=== PATIENT | female | born 1985 | race Caucasian/White ===

== ENCOUNTER 2016-10-06 08:30 | Emergency (ER) | payer SELFPAY ==
[~2016-10-06 08:30] MED LIST: 'PARAFON FORTE500 M1 PO; AMOXICILLIN500 MG PO; ANTIVERT/2525 MG PO; AUGMENTIN 875875 MG PO; B12,B-12,B 12500 MC1 PO; BACTRIM DS 8001 TA1 PO; BACTRIM DS 8001 TAB PO; CLARITIN10 MG PO; CLEOCIN HCL300 MG PO; EFFEXOR37.5 MG PO; ELIMITE 5%60 GM T; FEROSUL325 MG PO; FLEXERIL10 MG PO; FLOMAX0.4 MG PO; HYDROCODONE BIT1 T11 PO; KLONOPIN1 MG PO; LAMICTAL25 MG PO; LIDEX0.05% T; MACROBID100 M1 PO; MOTRIN600 MG PO; MOTRIN800 MG PO; MULTIVITAMIN FO1 CAP PO; NAPROSYN500 MG PO; NKHM; PERCOCET 325 MG1 TA2 PO; PHARMASSURE FO0.4 MG PO; PHENERGAN25 M1 PO; Percocet 325 MG1 TAB PO; SYNTHROID0.125 MG PO; Synthroid,Levo25 MCG PO; TORADOL10 MG PO; TRAMADOL HCL50 MG PO; TRAMADOL50 MG PO; TRAZODO50 MG PO; XANAX0.5 MG PO; ZOFRAN ODT4 MG SL; [UNRECOGNIZED DRUG - OTHER]
[2016-10-06 08:57] LABS: BASO % 0.2 % (0.0-1.0); HEMATOCRIT 36.8 % (37.0-47.0); HEMOGLOBIN 11.8 g/dl (12.0-16.0); LYMPH # 2.1 10*3/uL (1.3-4.4); MEAN CELL VOLUME 86.6 fl (81.0-99.0); MEAN CORPUSCULAR HGB 27.8 pg (27.0-31.0); MEAN CORPUSCULAR HGB CONC 32.1 g/dl (33.0-37.0); MEAN PLATELET VOLUME 8.7 fl (9.6-12.3); MONO # 0.8 10*3/uL (0.1-1.0); MONO % 7.8 % (3.0-9.0); NEUT # 6.7 10*3/uL (2.3-7.9); NEUT % 69.6 % (47.0-73.0); PLATELET COUNT AUTOMATED 242 10*3/uL (130-400); RED BLOOD COUNT 4.25 10*6/uL (4.10-5.10); RED CELL DISTRI WIDTH 13.8 % (0-14.5); WHITE BLOOD COUNT 9.6 10*3/uL (4.8-10.8)
[2016-10-06 09:14] LABS: ALBUMIN 3.6 gm/dl (3.1-4.5); ALKALINE PHOSPHATASE 64 U/L (45-117); BILIRUBIN, TOTAL 0.6 mg/dl (0.2-1.0); BUN 11 mg/dl (7-24); CARBON DIOXIDE 26 mmol/L (21-32); CHLORIDE 107 mmol/L (98-107); EST GLOM FILT AFRICAN AMERICAN > 60 ml/min; GLUCOSE 89 mg/dL (65-99); MAGNESIUM 2.4 mg/dL (1.5-2.1); POTASSIUM 3.3 mmol/L (3.5-5.1); SGOT/AST 53 IU/L (3-35); SGPT/ALT 53 U/L (12-78); SODIUM 143 mmol/L (136-145); TOTAL PROTEIN 8.6 gm/dL (6.4-8.2)
[2016-10-06 09:39] LABS: BILIRUBIN 1+ (NEGATIVE); BLOOD NEGATIVE (NEGATIVE); CLARITY CLOUDY (CLEAR); COLOR YELLOW (YELLOW); GLUCOSE NEGATIVE (NEGATIVE); KETONE 1+ (NEGATIVE); LEUKO ESTERASE TRACE (NEGATIVE); NITRITE NEGATIVE (NEGATIVE); PH 7.5 (5.0-9.0); PROTEIN 1+ (NEGATIVE); UROBILINOGEN >= 8.0 E.U./dl (0.2-1.0)
[2016-10-06 09:44] LABS: URINE AMPHETAMINES < 1000 (1000ng/ml); URINE BARBITURATES < 200 (200ng/ml); URINE COCAINE > 300 (300ng/ml)
[2016-10-06 09:50] LABS: EPITHELIAL CELLS 16-20
[2016-10-06 09:51] LABS: BACTERIA 2+; MUCOUS 2+; RBC 0-2 rbc/hpf (0-2); URINE REFLEX COMMENT YES (NO)
[2016-10-06 09:54] VITALS: BP 115/68
== END 2016-10-06 11:01 | disposition short-term general hospital (02) ==
LOC: ED 08:30
PROVIDERS: Emergency Medicine
DX: I63.9 Cerebral infarction, unspecified (principal); F41.9 Anxiety disorder, unspecified

== ENCOUNTER 2018-02-19 11:17 | Inpatient (IN) | payer OTHER ==
[~2018-02-19] VITALS: Ht 167.6 cm; Wt 82.2 kg
[2018-02-19 12:35] VITALS: BP 92/51
[2018-02-19 13:30] VITALS: BP 92/51
[2018-02-19] MEDS ORDERED: QUETIAPINE FUM100 M2 PO (13:33)
[2018-02-19] MEDS ORDERED: TOPIRAMATE50 M1 PO (13:34)
[2018-02-19] MEDS ORDERED: ROPINIROLE HYDRO1 MG PO (13:35)
[2018-02-19] MEDS ORDERED: IRON 100-VITAM1 EACH PO (13:35)
[2018-02-19 14:28] LABS: BILIRUBIN NEGATIVE (NEGATIVE); BLOOD NEGATIVE (NEGATIVE); CLARITY CLEAR (CLEAR); COLOR YELLOW (YELLOW); GLUCOSE NEGATIVE (NEGATIVE); KETONE NEGATIVE (NEGATIVE); LEUKO ESTERASE 1+ (NEGATIVE); NITRITE NEGATIVE (NEGATIVE); SPECIFIC GRAVITY <= 1.005 (1.005-1.030)
[2018-02-19 14:36] LABS: BACTERIA 1+; EPITHELIAL CELLS TNTC; RBC 0-2 rbc/hpf (0-2)
[2018-02-19 14:39] LABS: URINE AMPHETAMINES < 1000 (1000ng/ml); URINE BARBITURATES < 200 (200ng/ml); URINE BENZODIAZEPINES < 200 (200ng/ml); URINE CANNABINOIDS (THC) < 50 (50ng/ml); URINE COCAINE > 300 (300ng/ml); URINE METHADONE < 300 (300ng/ml); URINE OPIATES < 300 (300ng/ml); URINE PHENCYCLIDINE < 25 (25ng/ml)
[2018-02-19 17:00] VITALS: BP 90/62
[2018-02-19 20:00] VITALS: BP 98/50
[2018-02-19 20:21] LABS: BASO % 0.3 % (0.0-1.0); EOS % 0.7 % (1.0-4.0); HEMATOCRIT 37.3 % (37.0-47.0); HEMOGLOBIN 11.9 g/dl (12.0-16.0); LYMPH # 2.6 10*3/uL (1.3-4.4); LYMPH % 45.6 % (27.0-41.0); MEAN CORPUSCULAR HGB 26.8 pg (27.0-31.0); MEAN CORPUSCULAR HGB CONC 31.9 g/dl (33.0-37.0); MEAN PLATELET VOLUME 10.9 fl (9.6-12.3); MONO # 0.5 10*3/uL (0.1-1.0); MONO % 9.2 % (3.0-9.0); NEUT # 2.5 10*3/uL (2.3-7.9); NEUT % 43.9 % (47.0-73.0); PLATELET COUNT AUTOMATED 222 10*3/uL (130-400); RED BLOOD COUNT 4.44 10*6/uL (4.10-5.10); RED CELL DISTRI WIDTH 18.4 % (0-14.5); WHITE BLOOD COUNT 5.8 10*3/uL (4.8-10.8)
[2018-02-19 20:30] LABS: INTERNATIONAL NORM RATIO 1.1 (2.0-3.5)
[2018-02-19 20:37] LABS: ALBUMIN 3.8 gm/dl (3.1-4.5); ALKALINE PHOSPHATASE 66 U/L (45-117); BUN 11 mg/dl (7-24); CHLORIDE 103 mmol/L (98-107); CREATININE 1.03 mg/dL (0.55-1.02); ETHYL ALCOHOL < 3.0 mg/dl (<3); POTASSIUM 2.8 mmol/L (3.5-5.1); SGOT/AST 30 IU/L (3-35); SGPT/ALT 69 U/L (12-78); SODIUM 137 mmol/L (136-145); TOTAL PROTEIN 8.7 gm/dL (6.4-8.2)
[2018-02-19 20:44] LABS: BETA-HCG, QUANT < 1.0 mIU/mL (1-3)
[2018-02-20] VITALS: BP 91/58
[2018-02-20 08:00] VITALS: BP 90/50
[2018-02-20 12:00] VITALS: BP 91/55
[2018-02-20 16:00] VITALS: BP 96/55
[2018-02-21] VITALS: BP 103/64
[2018-02-21 08:00] VITALS: BP 95/53
[2018-02-21 08:08] LABS: HEPATITIS B SURFACE AG Negative (Negative)
[2018-02-21 09:01] LABS: HEPATITIS C VIRUS ANTIBODY >11.0 s/co (0.0-0.9)
[2018-02-21 16:00] VITALS: BP 107/64
[2018-02-21 20:00] VITALS: BP 112/72
[2018-02-22 00:50] VITALS: BP 111/64
[2018-02-22 06:24] LABS: BASO % 0.2 % (0.0-1.0); EOS # 0.1 10*3/uL (0.0-0.4); EOS % 0.9 % (1.0-4.0); HEMATOCRIT 33.2 % (37.0-47.0); HEMOGLOBIN 10.2 g/dl (12.0-16.0); LYMPH # 2.3 10*3/uL (1.3-4.4); LYMPH % 28.3 % (27.0-41.0); MEAN CELL VOLUME 86.5 fl (81.0-99.0); MEAN CORPUSCULAR HGB 26.6 pg (27.0-31.0); MEAN CORPUSCULAR HGB CONC 30.7 g/dl (33.0-37.0); MEAN PLATELET VOLUME 11.4 fl (9.6-12.3); MONO # 0.4 10*3/uL (0.1-1.0); MONO % 5.5 % (3.0-9.0); NEUT # 5.2 10*3/uL (2.3-7.9); NEUT % 64.7 % (47.0-73.0); PLATELET COUNT AUTOMATED 176 10*3/uL (130-400); RED BLOOD COUNT 3.84 10*6/uL (4.10-5.10); RED CELL DISTRI WIDTH 18.8 % (0-14.5)
[2018-02-22 06:50] LABS: CREATININE 0.79 mg/dL (0.55-1.02)
[2018-02-22 08:00] VITALS: BP 94/50
[2018-02-22 16:00] VITALS: BP 101/57
[2018-02-22 20:00] VITALS: BP 106/56
[2018-02-23] VITALS: BP 81/41
[2018-02-23 08:00] VITALS: BP 90/49
[2018-02-23 11:57] LABS: BUN 7 mg/dl (7-24); CHLORIDE 114 mmol/L (98-107); CREATININE 0.74 mg/dL (0.55-1.02); POTASSIUM 3.5 mmol/L (3.5-5.1); SODIUM 143 mmol/L (136-145)
[2018-02-23 12:00] VITALS: BP 104/58
[2018-02-23 16:00] VITALS: BP 99/59
[2018-02-23 20:00] VITALS: BP 111/48
[2018-02-24] VITALS: BP 101/40
[2018-02-24 08:00] VITALS: BP 103/69
[2018-02-24] MEDS ORDERED: ATARAX,VISTARIL50 MG PO (10:51)
[2018-02-24] MEDS ORDERED: ZOFRAN 4 MG ED2 TAB PO (10:51)
[2018-02-24 12:00] VITALS: BP 105/45
== END 2018-02-24 13:22 | disposition home or self-care (01) | DRG 896 ==
LOC: 5E 11:17
PROVIDERS: Internal Medicine; Student in an Organized Health Care Education/Training Program
DX: F11.23 Opioid dependence with withdrawal (principal); E43 Unspecified severe protein-calorie malnutrition; F14.10 Cocaine abuse, uncomplicated; F15.10 Other stimulant abuse, uncomplicated; G25.81 Restless legs syndrome; R56.9 Unspecified convulsions; D50.9 Iron deficiency anemia, unspecified; F41.9 Anxiety disorder, unspecified; Z98.51 Tubal ligation status; Z86.73 Personal history of transient ischemic attack (TIA), and cerebral infarction without residual deficits; Z80.0 Family history of malignant neoplasm of digestive organs; Z80.8 Family history of malignant neoplasm of other organs or systems; Z79.899 Other long term (current) drug therapy; Z68.29 Body mass index [BMI] 29.0-29.9, adult

== ENCOUNTER 2019-05-14 21:43 | Emergency (ER) | payer SELFPAY ==
[~2019-05-14] VITALS: Ht 167.6 cm; Wt 79.4 kg
--- NOTE | ~2019-05-14 | EKG ---
[place], [place] ELECTROCARDIOGRAM REPORT NAME: CLAUDY SANCHEZ UNIT #: [id number] ROOM: DOCTOR: EPIPHANY DRAFT REPORT BIRTHDATE: [birth year] [facility] Test Date: 2019-05-14 Test Time: 23:58:28 Pat Name: CLAUDY SANCHEZ Department: Room: Gender: F Chro: : 1985 Requested By: CHRISTY ELIZABETH PA-C Order Number: [id number] Reading MD: Fili Garcia MD Measurements Intervals [place] Rate: 50 P: 0 OK: 130 QRS: 64 QRSD: 90 T: 57 QT: 464 QTc: 424 Interpretive Statements Sinus rhythm Nonspecific T abnrm, anterolateral leads Baseline wander in lead(s) V2 Electronically Signed On 05-15-2019 4:32:16 PST by Fili Garcia MD CM:EKGRPT:ELECTROCARDIOGRAM REPORT [id number] CHRISTY ELIZABETH PA-C EPIPHANY DRAFT REPORT CHRISTY ELIZABETH PA-C
[~2019-05-14 21:43] MED LIST changes: +ATARAX,VISTARIL50 MG PO; +IRON 100-VITAM1 EACH PO; +QUETIAPINE FUM100 M2 PO; +ROPINIROLE HYDRO1 MG PO; +TOPIRAMATE50 M1 PO; +ZOFRAN 4 MG ED2 TAB PO
[2019-05-14 21:47] VITALS: BP 110/52
[2019-05-15 00:29] LABS: BASO % 0.2 % (0.0-1.0); EOS % 0.1 % (1.0-4.0); HEMATOCRIT 36.4 % (37.0-47.0); HEMOGLOBIN 12.2 g/dl (12.0-16.0); LYMPH # 1.9 10*3/uL (1.3-4.4); LYMPH % 16.5 % (27.0-41.0); MEAN CELL VOLUME 96.8 fl (81.0-99.0); MEAN CORPUSCULAR HGB 32.4 pg (27.0-31.0); MEAN CORPUSCULAR HGB CONC 33.5 g/dl (33.0-37.0); MEAN PLATELET VOLUME 10.8 fl (9.6-12.3); MONO # 0.6 10*3/uL (0.1-1.0); MONO % 5.2 % (3.0-9.0); NEUT % 77.6 % (47.0-73.0); PLATELET COUNT AUTOMATED 170 10*3/uL (130-400); RED BLOOD COUNT 3.76 10*6/uL (4.10-5.10); RED CELL DISTRI WIDTH 12.5 % (0-14.5); WHITE BLOOD COUNT 11.6 10*3/uL (4.8-10.8)
[2019-05-15 00:38] LABS: INTERNATIONAL NORM RATIO 1.1 (2.0-3.5)
[2019-05-15 00:46] LABS: ALBUMIN 3.7 gm/dl (3.1-4.5); ALKALINE PHOSPHATASE 47 U/L (45-117); BUN 24 mg/dl (7-24); CHLORIDE 115 mmol/L (98-107); CREATININE 0.78 mg/dL (0.55-1.02); POTASSIUM 3.4 mmol/L (3.5-5.1); SGOT/AST 76 IU/L (3-35); SGPT/ALT 115 U/L (12-78); SODIUM 142 mmol/L (136-145); TOTAL PROTEIN 7.4 gm/dL (6.4-8.2)
[2019-05-15 00:48] LABS: TROPONIN I < 0.015 ng/ml (<0.045)
== END 2019-05-15 01:25 | disposition short-term general hospital (02) ==
LOC: ED 21:43
PROVIDERS: Physician Assistant
DX: S22.5XXA Flail chest, initial encounter for closed fracture (principal); M54.2 Cervicalgia; R51 Headache; R79.1 Abnormal coagulation profile; Z79.899 Other long term (current) drug therapy; V03.99XA Pedestrian with other conveyance injured in collision with car, pick-up truck or van, unspecified whether traffic or nontraffic accident, initial encounter; Y93.89 Activity, other specified; Y92.89 Other specified places as the place of occurrence of the external cause; Y99.8 Other external cause status

== ENCOUNTER 2020-12-27 17:40 | Emergency (ER) | payer MEDICAID ==
[~2020-12-27] VITALS: Ht 167.6 cm; Wt 58.5 kg
[~2020-12-27 17:40] MED LIST changes: +TOPAMAX100 M1 PO; -TOPIRAMATE50 M1 PO
[2020-12-27 20:58] LABS: BILIRUBIN Negative (Negative); BLOOD Negative (Negative); CLARITY Clear (Clear); COLOR Yellow (Yellow); GLUCOSE Negative (Negative); KETONE Negative (Negative); LEUKO ESTERASE Negative (Negative); NITRITE Negative (Negative)
[2020-12-27 21:05] LABS: URINE AMPHETAMINES < 1000 (1000ng/ml); URINE BARBITURATES < 200 (200ng/ml); URINE BENZODIAZEPINES < 200 (200ng/ml); URINE CANNABINOIDS (THC) < 50 (50ng/ml); URINE COCAINE < 300 (300ng/ml); URINE METHADONE < 300 (300ng/ml); URINE OPIATES < 300 (300ng/ml)
[2020-12-27 21:07] LABS: URINE PHENCYCLIDINE < 25 (25ng/ml)
[2020-12-27 21:09] LABS: WBC 0-2 wbc/hpf (0-5)
[2020-12-28 00:17] LABS: BASO % 0.5 % (0.0-1.0); EOS # 0.1 10*3/uL (0.0-0.4); EOS % 0.8 % (1.0-4.0); HEMATOCRIT 33.7 % (37.0-47.0); LYMPH # 3.3 10*3/uL (1.3-4.4); LYMPH % 51.9 % (27.0-41.0); MEAN CELL VOLUME 95.2 fl (81.0-99.0); MEAN CORPUSCULAR HGB 31.4 pg (27.0-31.0); MEAN CORPUSCULAR HGB CONC 32.9 g/dl (33.0-37.0); MEAN PLATELET VOLUME 10.5 fl (9.6-12.3); MONO # 0.4 10*3/uL (0.1-1.0); MONO % 5.7 % (3.0-9.0); NEUT # 2.6 10*3/uL (2.3-7.9); NEUT % 40.9 % (47.0-73.0); PLATELET COUNT AUTOMATED 150 10*3/uL (130-400); RED BLOOD COUNT 3.54 10*6/uL (4.10-5.10); RED CELL DISTRI WIDTH 12.7 % (0-14.5); WHITE BLOOD COUNT 6.3 10*3/uL (4.8-10.8)
[2020-12-28 00:32] LABS: ALBUMIN 3.3 gm/dl (3.1-4.5); ALKALINE PHOSPHATASE 32 U/L (45-117); BUN 13 mg/dl (7-24); CHLORIDE 116 mmol/L (98-107); CREATININE 0.65 mg/dL (0.55-1.02); POTASSIUM 3.4 mmol/L (3.5-5.1); SGOT/AST 8 IU/L (3-35); SGPT/ALT 10 U/L (12-78); SODIUM 143 mmol/L (136-145); TOTAL PROTEIN 6.4 gm/dL (6.4-8.2)
[2020-12-28] MEDS ORDERED: KEPPRA500 MG PO (08:09)
[2020-12-28 17:29] VITALS: BP 96/64
== END 2020-12-28 18:05 | disposition short-term general hospital (02) ==
LOC: ED 17:40
PROVIDERS: Emergency Medicine
DX: R56.9 Unspecified convulsions (principal); R51.9 Headache, unspecified; F41.9 Anxiety disorder, unspecified; Z98.51 Tubal ligation status; Z86.73 Personal history of transient ischemic attack (TIA), and cerebral infarction without residual deficits; Z79.899 Other long term (current) drug therapy

== ENCOUNTER 2021-01-06 16:38 | Emergency (ER) | payer MEDICAID ==
[~2021-01-06] VITALS: Ht 167.6 cm; Wt 59.0 kg
[~2021-01-06 16:38] MED LIST changes: +KEPPRA500 MG PO
[2021-01-06 16:57] VITALS: BP 108/65
[2021-01-06 17:43] LABS: BILIRUBIN Negative (Negative); BLOOD Trace-Lysed (Negative); CLARITY Clear (Clear); COLOR Yellow (Yellow); GLUCOSE Negative (Negative); KETONE Trace (Negative); LEUKO ESTERASE Negative (Negative); NITRITE Negative (Negative); SPECIFIC GRAVITY 1.025 (1.001-1.030)
[2021-01-06 18:12] LABS: BACTERIA TRACE; MUCOUS TRACE; RBC 0-2 rbc/hpf (0-2)
[2021-01-06 18:43] LABS: BASO % 0.6 % (0.0-1.0); EOS % 0.4 % (1.0-4.0); HEMATOCRIT 36.1 % (37.0-47.0); LYMPH # 2.7 10*3/uL (1.3-4.4); LYMPH % 38.5 % (27.0-41.0); MEAN CELL VOLUME 101.1 fl (81.0-99.0); MEAN CORPUSCULAR HGB 31.4 pg (27.0-31.0); MONO # 0.4 10*3/uL (0.1-1.0); MONO % 6.1 % (3.0-9.0); NEUT # 3.7 10*3/uL (2.3-7.9); NEUT % 54.3 % (47.0-73.0); PLATELET COUNT AUTOMATED 150 10*3/uL (130-400); RED BLOOD COUNT 3.57 10*6/uL (4.10-5.10); WHITE BLOOD COUNT 6.9 10*3/uL (4.8-10.8)
[2021-01-06 18:58] LABS: ALBUMIN 3.4 gm/dl (3.1-4.5); ALKALINE PHOSPHATASE 40 U/L (45-117); BUN 16 mg/dl (7-24); CHLORIDE 119 mmol/L (98-107); CREATININE 0.82 mg/dL (0.55-1.02); POTASSIUM 3.5 mmol/L (3.5-5.1); SGOT/AST 8 IU/L (3-35); SGPT/ALT 11 U/L (12-78); SODIUM 144 mmol/L (136-145); TOTAL PROTEIN 6.8 gm/dL (6.4-8.2)
== END 2021-01-06 20:15 | disposition home or self-care (01) ==
LOC: ED 16:38
PROVIDERS: Emergency Medicine; Physician Assistant
DX: N92.1 Excessive and frequent menstruation with irregular cycle (principal); Z79.899 Other long term (current) drug therapy; Z98.51 Tubal ligation status

== ENCOUNTER 2021-01-17 14:35 | Emergency (ER) | payer MEDICAID ==
[~2021-01-17] VITALS: Wt 65.8 kg
[2021-01-17 15:07] LABS: BASO % 0.6 % (0.0-1.0); EOS # 0.1 10*3/uL (0.0-0.4); EOS % 0.7 % (1.0-4.0); HEMATOCRIT 38.8 % (37.0-47.0); LYMPH # 2.8 10*3/uL (1.3-4.4); LYMPH % 41.6 % (27.0-41.0); MEAN CELL VOLUME 97.5 fl (81.0-99.0); MEAN CORPUSCULAR HGB 31.7 pg (27.0-31.0); MEAN CORPUSCULAR HGB CONC 32.5 g/dl (33.0-37.0); MEAN PLATELET VOLUME 10.3 fl (9.6-12.3); MONO # 0.4 10*3/uL (0.1-1.0); MONO % 6.2 % (3.0-9.0); NEUT # 3.4 10*3/uL (2.3-7.9); NEUT % 50.6 % (47.0-73.0); PLATELET COUNT AUTOMATED 202 10*3/uL (130-400); RED BLOOD COUNT 3.98 10*6/uL (4.10-5.10); RED CELL DISTRI WIDTH 12.8 % (0-14.5); WHITE BLOOD COUNT 6.7 10*3/uL (4.8-10.8)
[2021-01-17 15:24] LABS: ALBUMIN 3.8 gm/dl (3.1-4.5); ALKALINE PHOSPHATASE 46 U/L (45-117); BUN 15 mg/dl (7-24); CHLORIDE 113 mmol/L (98-107); POTASSIUM 3.2 mmol/L (3.5-5.1); SGOT/AST 7 IU/L (3-35); SGPT/ALT 13 U/L (12-78); SODIUM 144 mmol/L (136-145); TOTAL PROTEIN 7.8 gm/dL (6.4-8.2)
[2021-01-17 15:42] LABS: TROPONIN I < 0.015 ng/ml (<0.045)
[2021-01-18 01:16] VITALS: BP 92/50
== END 2021-01-18 02:41 ==
LOC: ED 14:35
PROVIDERS: Family Medicine
DX: E16.2 Hypoglycemia, unspecified (principal); E87.6 Hypokalemia; R07.9 Chest pain, unspecified; M79.662 Pain in left lower leg; R20.0 Anesthesia of skin; Z79.899 Other long term (current) drug therapy; Z86.73 Personal history of transient ischemic attack (TIA), and cerebral infarction without residual deficits

== ENCOUNTER → 2021-02-03 | Outpatient (CLI) | payer MEDICAID ==
[~2021-02-03] MED LIST changes: +PREDNISONE20 M1 PO; +PROVENTIL HFA6.7 GM INH
[2021-02-03 15:33] LABS: BASO % 0.5 % (0.0-1.0); EOS # 0.1 10*3/uL (0.0-0.4); EOS % 0.8 % (1.0-4.0); HEMATOCRIT 34.9 % (37.0-47.0); LYMPH # 1.6 10*3/uL (1.3-4.4); LYMPH % 25.6 % (27.0-41.0); MEAN CELL VOLUME 98.9 fl (81.0-99.0); MEAN CORPUSCULAR HGB 31.7 pg (27.0-31.0); MEAN CORPUSCULAR HGB CONC 32.1 g/dl (33.0-37.0); MONO # 0.4 10*3/uL (0.1-1.0); MONO % 6.6 % (3.0-9.0); NEUT # 4.1 10*3/uL (2.3-7.9); NEUT % 66.2 % (47.0-73.0); PLATELET COUNT AUTOMATED 168 10*3/uL (130-400); RED BLOOD COUNT 3.53 10*6/uL (4.10-5.10); RED CELL DISTRI WIDTH 13.1 % (0-14.5); WHITE BLOOD COUNT 6.2 10*3/uL (4.8-10.8)
== END | disposition home or self-care (01) ==
LOC: US 13:22
PROVIDERS: ATTEND Family Medicine
DX: N93.9 Abnormal uterine and vaginal bleeding, unspecified (principal); R53.83 Other fatigue

== ENCOUNTER 2021-02-06 12:32 | Emergency (ER) | payer MEDICAID ==
[~2021-02-06] VITALS: Ht 167.6 cm; Wt 62.6 kg
[~2021-02-06 12:32] MED LIST changes: -PREDNISONE20 M1 PO; -PROVENTIL HFA6.7 GM INH
[2021-02-06 12:46] VITALS: BP 117/74
[2021-02-06] MEDS ORDERED: PREDNISONE20 M1 PO (17:11)
[2021-02-06] MEDS ORDERED: PROVENTIL HFA6.7 GM INH (17:11)
== END 2021-02-06 18:26 | disposition home or self-care (01) ==
LOC: ED 12:32
DX: J02.9 Acute pharyngitis, unspecified (principal); Z20.822 Contact with and (suspected) exposure to COVID-19; R42 Dizziness and giddiness; R51.9 Headache, unspecified; R09.81 Nasal congestion; R05 Cough; Z79.899 Other long term (current) drug therapy; Z98.890 Other specified postprocedural states; Z98.1 Arthrodesis status